=== PATIENT | female | born 1970 | race Native Hawaiian/Other Pacific Islander ===

== ENCOUNTER 2016-07-25 20:59 | Emergency (ER) | payer OTHER ==
[2016-07-25 21:08] VITALS: BP 92/57; PULSE 102; TEMP 100.4; BMI 28.3
[2016-07-25] MEDS ORDERED: ACETAMINOPHEN 325 MG TABLET (FP) PO ONE (21:24)
[2016-07-25] MEDS ORDERED: ACETAMINOPHEN 325 MG TABLET (FP) ONE ×2 (21:52→22:32)
--- NOTE | 2016-07-25 22:00 | PDOC ---
History of Present Illness - General Chief Complaint: Cold Symptoms Stated Complaint: DIZZINESS Time Seen by Provider: 07/25/16 21:10 History Source: Patient Exam Limitations: No Limitations - History of Present Illness Initial Comments: CHIEF COMPLAINT: 46 y/o febrile female with body aches, chills and slight cough today. HISTORY OF PRESENT ILLNESS: The patient also admits to some lightheadedness upon standing. She denies fever at home, n/v/d, runny nose, CP, SOB, palpitations, abd pain, hematuria, dysuria. The patient has not taken any medications for her symptoms. She has no sick contacts. Vital signs on arrival are notable for pulse of 102 secondary to temp of 100.4. REVIEW OF SYSTEMS: GENERAL/CONSTITUTIONAL: No fever. + chills. No weakness. No weight change. + body aches HEAD, EYES, EARS, NOSE AND THROAT: No change in vision. No ear pain or discharge. No sore throat. CARDIOVASCULAR: No chest pain or shortness of breath. RESPIRATORY: +dry cough. No wheezing, or hemoptysis. GASTROINTESTINAL: No abd pain, nausea, vomiting, diarrhea. GENITOURINARY: No dysuria, frequency, or change in urination. MUSCULOSKELETAL: No joint or muscle swelling or pain. No neck or back pain. SKIN: No rash or easy bruising. NEUROLOGIC: No headache, vertigo, loss of consciousness, or loss of sensation. PHYSICAL EXAM: GENERAL: The patient is awake, alert, and fully oriented, in no acute distress. She is well appearing and ambulatory. No cough appreciated in the ER. HEAD: Normal with no signs of trauma. ENT: Pupils equal, round and reactive to light, extraocular movements intact, sclera anicteric, conjunctiva clear. Neck supple. LUNGS: Clear to auscultation bilaterally. Normal excursion. No respiratory distress or use of accessory muscles. CV: RRR, S1/S2, no MRG. Cap refill < 2 sec. ABDOMEN: Soft, non-distended, non-tender even to deep palpation, no hepatomegaly or splenomegaly, no masses. EXTREMITIES: Normal range of motion, no edema. NEUROLOGICAL: Normal speech, normal gait. CN II-XII grossly intact. PSYCH: Normal mood, normal affect. SKIN: Warm, dry, normal turgor, no rashes or lesions noted. Past History - Past Medical History Allergies/Adverse Reactions: Allergies Allergy/AdvReac Type Severity Reaction Status Date / Time No Known Allergies Allergy Verified 07/25/16 21:05 Home Medications: Ambulatory Orders No Home Medications 0 dose .ROUTE UTDICT 01/22/12 Acyclovir [Zovirax -] 800 mg PO 5XD #25 tablet 12/11/14 Other medical history: denies - Immunization History Immunization Up to Date: No (no flu shot) - Psycho/Social/Smoking Cessation Hx Anxiety: No Suicidal Ideation: No Smoking Status: No Smoking History: Never smoked Have you smoked in the past 12 months: No Number of Cigarettes Smoked Daily: 0 Information on smoking cessation initiated: No Hx Alcohol Use: No Drug/Substance Use Hx: No Substance Use Type: None *Physical Exam - Vital Signs Last Vital Signs Temp Pulse Resp BP Pulse Ox 100.4 F H 102 H 20 92/57 100 07/25/16 21:06 07/25/16 21:06 07/25/16 21:06 07/25/16 21:06 07/25/16 21:06 Medical Decision Making - Medical Decision Making A/P: 46 y/o female with flu vs viral syndrome. No more flu swabs in the ER. Plan is as follows: 1. PO tylenol The patient is refusing to take entire dose of tylenol. She only wants to take 1. The patient is refusing all other treatment Suggested she take tylenol and motrin at home for fever/body aches. Instructed her to call her doctor tomorrow, drink plenty of fluids and rest, and return to the ER with any worsening or concerning symptoms. The patient verbalizes understanding of all instructions, has no further questions and is awaiting discharge. *DC/Admit/Observation/Transfer Diagnosis at time of Disposition: Viral syndrome - Discharge Dispostion Disposition: HOME Condition at time of disposition: Stable - Referrals Referrals: Tiffanie Brannon MD [Primary Care Provider] - - Patient Instructions Printed Discharge Instructions: DI for Viral Syndrome Additional Instructions: Discharge Instructions: -Take tylenol or motrin for fever -Drink at least 64oz of fluids daily -Follow up with your doctor tomorrow -Return to the ER with any worsening or concerning symptoms
== END 2016-07-25 22:55 | disposition home or self-care (01) ==
LOC: JERFT 20:59
DX: B34.9 Viral infection, unspecified (principal)
CPT/HCPCS: 84703; 99281-25

== ENCOUNTER 2020-07-06 11:18 | Emergency (ER) | payer OTHER ==
[2020-07-06 11:28] VITALS: BP 107/54; PULSE 85; TEMP 98.1; BMI 24.7
[2020-07-06] MEDS ORDERED: KETOROLAC TROMETHAMINE 60 MG/2 ML VIAL IM ONE (12:09)
[2020-07-06] MEDS ORDERED: KETOROLAC TROMETHAMINE 30 MG/1 ML VIAL ONE (12:18)
== END 2020-07-06 12:31 | disposition home or self-care (01) ==
LOC: JERFT 11:18
PROC: 3E023GC Introduction of Other Therapeutic Substance into Muscle, Percutaneous Approach (ICD-10-PCS; principal; 2020-07-06)
DX: S63.601A Unspecified sprain of right thumb, initial encounter (principal); Y99.8 Other external cause status
CPT/HCPCS: 99284-25

== ENCOUNTER 2022-05-16 14:43 | Emergency (ER) | payer OTHER ==
[2022-05-16 15:11] VITALS: BP 98/52; PULSE 61; RESP 18; TEMP 97.7; BMI 23.1
[2022-05-16] MEDS ORDERED: ACETAMINOPHEN 1000 MG/100 ML BAG IVPB ONE (15:58)
[2022-05-16] MEDS ORDERED: SODIUM CHLORIDE 1,000 ML IV STA (15:58)
[2022-05-16] MEDS ORDERED: ACETAMINOPHEN INJECTION 100 ML IVPB ONE (16:57)
== END 2022-05-16 18:45 | disposition home or self-care (01) ==
LOC: JER 14:43
PROC: 3E0333Z Introduction of Anti-inflammatory into Peripheral Vein, Percutaneous Approach (ICD-10-PCS; principal; 2022-05-16)
PROC: 3E0337Z Introduction of Electrolytic and Water Balance Substance into Peripheral Vein, Percutaneous Approach (ICD-10-PCS; 2022-05-16)
DX: U07.1 COVID-19 (principal)
CPT/HCPCS: 0241U-QW; 71046-TC-FY; 99284-25

== ENCOUNTER 2024-05-26 15:07 | Emergency (ER) | payer OTHER ==
[2024-05-26 15:48] VITALS: BP 100/66; PULSE 79; RESP 18; TEMP 97.5; BMI 23.0
[2024-05-26 16:37] LABS: BASO % 0.5 % (0-2.0); EOS % 1.2 % (0-4.5); HEMATOCRIT 31.2 % (32.4-45.2); HEMOGLOBIN 10.5 GM/dL (10.7-15.3); LYMPH % 48.2 % (8-40); MCHC 33.7 g/dl (32.0-36.0); MEAN CELL VOLUME 91.9 fl (80-96); MEAN PLT VOLUME 8.5 fl (7.5-11.1); MONO % 7.7 % (3.8-10.2); NEUT % 42.4 % (42.8-82.8); PLATELET COUNT 281 10^3/uL (134-434)
[2024-05-26 16:55] LABS: POTASSIUM 4.5 mmol/L (3.5-5.1)
[2024-05-26 16:57] LABS: CALCIUM 7.3 mg/dL (8.5-10.1)
[2024-05-26 16:58] LABS: ALBUMIN 3.8 g/dl (3.4-5.0); BLOOD UREA NITROGEN 3.7 mg/dL (7-18); MAGNESIUM 1.9 mg/dL (1.8-2.4)
[2024-05-26 17:01] LABS: CREATININE 0.8 mg/dL (0.55-1.3); PHOSPHOROUS 2.6 mg/dL (2.5-4.9)
[2024-05-26 17:02] LABS: BILIRUBIN,TOTAL 0.6 mg/dL (0.2-1); TOT PROT 7.9 g/dl (6.4-8.2)
[2024-05-26] MEDS ORDERED: CALCIUM GLUC IN NACL, ISO-OSM 1 GM/50 ML BAG IVPB ONE (17:36)
[2024-05-26] MEDS: CALCIUM GLUCONATE 10% - 1,000 MG/10 ML VIAL IVPB ONE (17:49)
== END 2024-05-26 18:27 | disposition home or self-care (01) ==
LOC: JER 15:07
PROC: 3E033GC Introduction of Other Therapeutic Substance into Peripheral Vein, Percutaneous Approach (ICD-10-PCS; principal; 2024-05-26)
DX: E83.51 Hypocalcemia (principal)
CPT/HCPCS: 36415; 80053; 83735; 83970; 84100; 85025; 93005; 93010; 96374; 99284-25